=== PATIENT | male | born 1955 | race African-American/Black ===

== ENCOUNTER 2021-01-02 05:13 | Emergency (ER) | payer MEDICARE, MEDICAID ==
[~2021-01-02] VITALS: Ht 188 cm; Wt 64.0 kg
[~2021-01-02 05:13] MED LIST: LISI10TA26 PO
[2021-01-02 05:22] VITALS: BP 160/98
[2021-01-02] MEDS ORDERED: LIDOCAINE HCL 1% 20ML VIAL (Pyxis) INJ INFIL ONE (06:00)
== END 2021-01-02 06:32 | disposition home or self-care (01) ==
LOC: ER 05:13
DX: S51.811A Laceration without foreign body of right forearm, initial encounter (principal); G89.29 Other chronic pain; M54.9 Dorsalgia, unspecified; Z79.899 Other long term (current) drug therapy; Z79.82 Long term (current) use of aspirin; W25.XXXA Contact with sharp glass, initial encounter; Y93.89 Activity, other specified; Y92.89 Other specified places as the place of occurrence of the external cause; Y99.8 Other external cause status
CPT/HCPCS: 12002; 99282; J3490

== ENCOUNTER 2021-11-20 02:23 | Emergency (ER) | payer MEDICARE, OTHER ==
[~2021-11-20] VITALS: Ht 188 cm; Wt 115.0 kg
[2021-11-20] MEDS ORDERED: OXYCODONE HCL/ACETAMINOPHEN 5/325MG TABLET PO ONE (05:30)
[2021-11-20] MEDS ORDERED: KETOROLAC 60MG/2ML VIAL IM ONE (05:30)
[2021-11-20] MEDS ORDERED: MORPHINE SULFATE 10 MG/ML CPJ IM ONE (07:30)
[2021-11-20] MEDS ORDERED: IBUP-2028 PO (08:24)
[2021-11-20] MEDS ORDERED: OXYC-100 MT (08:24)
[2021-11-20] MEDS ORDERED: MORPHINE SULFATE 10 MG/ML CPJ IM NR (08:45)
[2021-11-20 08:56] VITALS: BP 198/98
== END 2021-11-20 09:00 | disposition home or self-care (01) ==
LOC: ER 02:23
DX: M54.50 Low back pain, unspecified (principal); I10 Essential (primary) hypertension; Z98.890 Other specified postprocedural states
CPT/HCPCS: 72100; 96372; 99284; J1885; J2270